=== PATIENT | female | born 1945 | race Caucasian/White ===

== ENCOUNTER → 2016-11-02 | Outpatient (CLI) | payer MEDICARE ==
[~2016-11-02] MED LIST: ASPI-558 PO; ATEN-36 PO; CITA20TA17 PO; LISI-126 PO; NAPR220C11 PO; TRAZ-56 PO
== END ==
LOC: WC.BC 07:54
DX: Z12.31 Encounter for screening mammogram for malignant neoplasm of breast (principal); N64.59 Other signs and symptoms in breast
CPT/HCPCS: 77063; G0202